=== PATIENT | female | born 1995 | race African-American/Black ===

== ENCOUNTER 2017-10-03 11:13 | Emergency (ER) | payer SELFPAY ==
[2017-10-03 11:15] VITALS: BP 117/65; PULSE 82; RESP 16; TEMP 98.4; O2SAT 98
--- NOTE | 2017-10-03 12:47 | PD ---
HPI Chief Complaint: Lump, Cyst, Hernia Time Seen by Provider: 12:28 Travel History International Travel<30 days: No Contact w/Intl Traveler<30days: No Traveled to known affect area: No History of Present Illness HPI 22-year-old female here with left breast tenderness and mass 2 months. She reports no change in size of the masses. No nipple discharge. No weight loss. No swollen nodes. No family history of breast cancer. No aggravating or alleviating factors. Symptoms severity mild. PFSH Past Medical History Medical History: Denies Significant Hx ?: Unknown LMP: 09/07/2017 Social History Alcohol Use: No Tobacco Use: No Substance Use: No Allergies-Medications (Allergen,Severity, Reaction): Coded Allergies: No Known Allergies (Unverified , 10/03/17) Reported Meds & Prescriptions Reported Meds & Active Scripts Active No Active Prescriptions or Reported Medications Review of Systems Except as stated in HPI: all other systems reviewed are Neg Physical Exam Narrative GENERAL: Alert well-appearing female. SKIN: Warm and dry. HEAD: Normocephalic. EYES: No injection or drainage. NECK: Supple, trachea midline. No lymphadenopathy. BREAST: Right breast 2 cm round tender mass located at 6:00. 1 cm tender mass located at 3:00. No nipple discharge. No change in skin texture. No axillary lymphadenopathy CARDIOVASCULAR: Regular rate and rhythm RESPIRATORY: Breath sounds equal bilaterally. No accessory muscle use. GASTROINTESTINAL: Abdomen soft, non-tender, nondistended. Data Data Last Documented VS Vital Signs Date Time Temp Pulse Resp B/P (MAP) Pulse Ox O2 Delivery O2 Flow Rate FiO2 10/03/17 13:00 10/03/17 11:15 98.4 82 16 98 Room Air Orders Orders Ed Discharge Order (10/03/17 12:47) MDM Medical Decision Making Medical Screen Exam Complete: Yes Emergency Medical Condition: Yes Differential Diagnosis Differential diagnosis for breast mass clued but are not limited to fibroadenoma , neoplasm, breast abscess Narrative Course 22-year-old female here with left breast tenderness and mass 2 months. She reports no change in size of the masses. No nipple discharge. No weight loss. No swollen nodes. No family history of breast cancer. On exam the patient does have 2 mildly tender masses in the left breast located at 3:00 and 6:00 both measure approximately 2 cm. No warmth or erythema of the breast. No change in pigmentation or texture of the breast skin. No axillary lymphadenopathy. The patient is a college student at [employer]. She has health insurance and has a car clerk pullman in mind should like to follow-up with. It was discussed at length with the patient that she would need follow-up and imaging of these breast masses. She was instructed to follow-up with the SECURITY CONTROL ROOM OFFICER this week which she agrees to. Diagnosis Primary Impression: Breast lump on left side at 6 o'clock position Additional Impression: Breast lump on left side at 3 o'clock position Referrals: Patience Pacheco MD Manpower Development Manager [facility] Additional Instructions: Call to schedule an appointment with a car clerk pullman. Follow-up is very important. You were given a list of 2 gynecologists for possible follow-up. You're welcome to use any car clerk pullman that her insurance covers. If you are unable to schedule an appointment for you develop new or worsening symptoms return to the emergency room Scripts No Active Prescriptions or Reported Meds Disposition: 01 DISCHARGE HOME Condition: Stable Thalia Palacio Oct 03, 2017 12:47
== END 2017-10-03 13:05 | disposition home or self-care (01) ==
LOC: NEPK 11:13
DX: N63.23 Unspecified lump in the left breast, lower outer quadrant (principal)
CPT/HCPCS: 99282